=== PATIENT | female | born 1950 | race Caucasian/White ===

== ENCOUNTER 2016-04-30 12:13 | Emergency (ER) | payer BC ==
[2016-04-30 16:00] VITALS: BP 146/89
--- NOTE | 2016-04-30 16:12 | UC ---
Skin Complaint HPI - HPI Summary HPI Summary: 65 yo female with right flank rash x <48 hours, pruritis and mild pain has shingle immunization no fever/chills - History of Current Complaint Chief Complaint: [employer] Time Seen by Provider: 04/30/16 16:06 Stated Complaint: SKIN COMPLAINT Hx Obtained From: Patient Onset/Duration: Gradual Onset, Lasting Days Timing: Constant Onset Severity: Mild Current Severity: Mild Pain Intensity: 2 - Allergy/Home Medications Allergies/Adverse Reactions: Allergies Allergy/AdvReac Type Severity Reaction Status Date / Time No Known Allergies Allergy Verified 04/30/16 15:59 Home Medications: Home Medications Aspirin [Aspirin Adult Low Dose] 81 mg PO DAILY 04/30/16 [History Confirmed 06/15] Calamine LOTION* 1 applic .SEE ORDER .SEE ORDER 04/30/16 [History Confirmed 06/15] Metoprolol Succinate [Toprol Xl] 50 mg PO DAILY 04/30/16 [History Confirmed 06/15] Mometasone 220 MCG MDI * [Asmanex 220 MCG MDI *] 2 puff INH BEDTIME 04/30/16 [ History Confirmed 04/30/16] Nystatin CREAM* 1 applic TOPICAL BID PRN 04/30/16 [History Confirmed 04/30/16] Omeprazole CAP* [Prilosec CAP* 20 MG] 20 mg PO DAILY 04/30/16 [History Confirmed 04/30/16] Valsartan TAB* [Diovan TAB*] 40 mg PO DAILY 04/30/16 [History Confirmed 04/30/16 ] Review of Systems Constitutional: Negative Skin: Rash Eyes: Negative ENT: Negative Respiratory: Negative Cardiovascular: Negative Gastrointestinal: Negative Genitourinary: Negative Motor: Negative Neurovascular: Negative Musculoskeletal: Negative Neurological: Negative Psychological: Negative All Other Systems Reviewed And Are Negative: Yes PMH/Surg Hx/FS Hx/Imm Hx Previously Healthy: Yes Endocrine History Of: Denies: Diabetes Cardiovascular History Of: Denies: Hypertension, Pacemaker/ICD Respiratory History Of: Reports: Asthma GI/ History Of: Denies: Renal Disease - Surgical History Surgical History: Yes Surgery Procedure, Year, and Place: 1980 - FIBROID TUMOR REMOVED - BENIGN - [facility]. 1998 - TUMOR - UPPER Lt THIGH - [facility]- INFECTION. 2010 - [facility]- PROCEDURE - SEPERATE TISSUE. D & C Xs 2 1998 & 2001 - Family History Known Family History: Positive: Hypertension - Social History Alcohol Use: None Substance Use Type: None Smoking Status (MU): Never Smoked Tobacco Physical Exam Triage Information Reviewed: Yes Appearance: Well-Appearing, No Pain Distress, Well-Nourished Vital Signs: Initial Vital Signs Temp 97.9 F 04/30/16 15:53 Pulse 80 04/30/16 15:53 Resp 16 04/30/16 15:53 BP 146/89 04/30/16 15:53 Pulse Ox 97 04/30/16 15:53 Vital Signs Reviewed: Yes Eyes: Positive: Conjunctiva Clear ENT: Positive: Hearing grossly normal. Negative: Nasal congestion, Nasal drainage, Trismus, Muffled/hoarse voice Dental: Negative: Abscess @ Neck: Positive: Supple Respiratory: Positive: Lungs clear, Normal breath sounds, No respiratory distress, No accessory muscle use Cardiovascular: Positive: RRR, No Murmur Musculoskeletal: Positive: ROM Intact, No Edema Neurological: Positive: Alert Psychological Exam: Normal Skin Exam: Other - see image Course/Dx - Diagnoses Provider Diagnoses: shingles Discharge - Discharge Plan Condition: Stable Disposition: HOME Prescriptions: Famciclovir(NF) [Famvir(NF)] 500 mg PO TID #21 tab Patient Education Materials: Shingles (ED) Referrals: Sary Skinner MD [Primary Care Provider] - Images Front/Back of Body, Lg ([place]): 1 - cluster of about 10 vesicles
== END 2016-04-30 16:35 | disposition home or self-care (01) ==
LOC: UCCORT 12:13
DX: B02.9 Zoster without complications (principal); Z79.82 Long term (current) use of aspirin; J45.909 Unspecified asthma, uncomplicated
CPT/HCPCS: 99212; G0463